=== PATIENT | female | born 1965 | race Caucasian/White ===

== ENCOUNTER 2018-03-14 23:01 | Inpatient (IN) | payer OTHER ==
[~2018-03-14] VITALS: Ht 160 cm; Wt 160.0 kg
[2018-03-14] MEDS ORDERED: VASOTEC5 MG (23:23)
[2018-03-14] MEDS ORDERED: NORVASC5 MG (23:24)
== END 2018-03-17 12:06 | disposition home or self-care (01) | DRG 69 ==
LOC: ER 23:01 → MEDJ 03-15 12:06
PROC: B345ZZZ Ultrasonography of Bilateral Common Carotid Arteries (ICD-10-PCS; principal; 2018-03-15)
PROC: B348ZZZ Ultrasonography of Bilateral Internal Carotid Arteries (ICD-10-PCS; 2018-03-15)
PROC: B246ZZZ Ultrasonography of Right and Left Heart (ICD-10-PCS; 2018-03-15)
PROC: B030ZZZ Magnetic Resonance Imaging (MRI) of Brain (ICD-10-PCS; 2018-03-15)
DX: G45.8 Other transient cerebral ischemic attacks and related syndromes (principal)
CPT/HCPCS: 70551

== ENCOUNTER 2018-09-16 09:51 | Outpatient (CLI) | payer OTHER ==
[~2018-09-16 09:51] MED LIST: NORVASC5 MG; VASOTEC5 MG
== END 2018-09-16 10:05 | disposition home or self-care (01) ==
LOC: RAD 09:51
DX: M54.5 Low back pain (principal); M62.830 Muscle spasm of back

== ENCOUNTER 2018-09-24 10:29 | Outpatient (CLI) | payer OTHER | END 2018-09-24 10:31 | disposition home or self-care (01) | LOC: SONOGRAMA 10:29 | DX: E78.49 Other hyperlipidemia (principal); R31.29 Other microscopic hematuria ==

== ENCOUNTER 2018-10-16 08:39 | Outpatient (CLI) | payer OTHER | END 2018-10-16 08:49 | disposition home or self-care (01) | LOC: TOM 08:39 | DX: R31.29 Other microscopic hematuria (principal) ==

== ENCOUNTER → 2021-10-10 06:52 | Outpatient (CLI) | payer OTHER | END | disposition home or self-care (01) | LOC: LAB 06:52 | PROVIDERS: ATTEND General Practice | DX: R51.9 Headache, unspecified (principal); R10.9 Unspecified abdominal pain; K21.9 Gastro-esophageal reflux disease without esophagitis; Z12.11 Encounter for screening for malignant neoplasm of colon; Z11.3 Encounter for screening for infections with a predominantly sexual mode of transmission; Z13.228 Encounter for screening for other metabolic disorders; Z13.220 Encounter for screening for lipoid disorders; Z11.4 Encounter for screening for human immunodeficiency virus [HIV]; Z13.29 Encounter for screening for other suspected endocrine disorder; Z13.0 Encounter for screening for diseases of the blood and blood-forming organs and certain disorders involving the immune mechanism; Z13.1 Encounter for screening for diabetes mellitus; I10 Essential (primary) hypertension; E78.2 Mixed hyperlipidemia; Z11.59 Encounter for screening for other viral diseases; Z12.31 Encounter for screening mammogram for malignant neoplasm of breast; E03.9 Hypothyroidism, unspecified; E55.9 Vitamin D deficiency, unspecified; R80.9 Proteinuria, unspecified; E11.9 Type 2 diabetes mellitus without complications ==

== ENCOUNTER 2021-10-17 07:17 | Outpatient (CLI) | payer OTHER | END 2021-10-17 07:46 | disposition home or self-care (01) | LOC: RAD 07:17 | PROVIDERS: ATTEND General Practice | DX: R10.9 Unspecified abdominal pain (principal); Z12.31 Encounter for screening mammogram for malignant neoplasm of breast; N60.01 Solitary cyst of right breast; I10 Essential (primary) hypertension ==

== ENCOUNTER 2021-10-29 06:48 | Outpatient (CLI) | payer OTHER | END 2021-10-29 13:42 | disposition home or self-care (01) | LOC: LAB 06:48 | DX: B00.9 Herpesviral infection, unspecified (principal); E78.5 Hyperlipidemia, unspecified; Z12.11 Encounter for screening for malignant neoplasm of colon ==

== ENCOUNTER 2022-01-28 06:50 | Outpatient (CLI) | payer OTHER | END 2022-01-28 06:56 | disposition home or self-care (01) | LOC: LAB 06:50 | DX: M25.569 Pain in unspecified knee (principal); M25.469 Effusion, unspecified knee ==

== ENCOUNTER 2022-01-30 13:00 | Outpatient (CLI) | payer OTHER | END 2022-01-30 13:12 | disposition home or self-care (01) | LOC: RAD 13:00 | PROVIDERS: ATTEND Orthopaedic Surgery | DX: M25.561 Pain in right knee (principal); M25.562 Pain in left knee ==

== ENCOUNTER 2022-05-28 09:35 | Outpatient (CLI) | payer OTHER | END 2022-05-28 09:45 | disposition home or self-care (01) | LOC: RAD 09:35 | PROVIDERS: ATTEND Specialist | DX: M54.9 Dorsalgia, unspecified (principal); M62.830 Muscle spasm of back ==

== ENCOUNTER 2023-03-11 08:45 | Outpatient (CLI) | payer OTHER ==
[~2023-03-11 08:45] MED LIST changes: +METHOCARBAMOL500 MG PO
== END 2023-03-11 08:47 | disposition home or self-care (01) ==
LOC: LAB 08:45
DX: R19.7 Diarrhea, unspecified (principal); R10.9 Unspecified abdominal pain; M54.50 Low back pain, unspecified

== ENCOUNTER 2023-03-11 09:46 | Outpatient (CLI) | payer OTHER | END 2023-03-11 09:49 | disposition home or self-care (01) | LOC: RAD 09:46 | PROVIDERS: ATTEND General Practice | DX: R19.7 Diarrhea, unspecified (principal); M54.50 Low back pain, unspecified ==

== ENCOUNTER 2023-07-17 08:08 | Outpatient (CLI) | payer OTHER | END 2023-07-17 08:36 | disposition home or self-care (01) | LOC: MAMO-SONO 08:08 | PROVIDERS: ATTEND Specialist | DX: Z12.31 Encounter for screening mammogram for malignant neoplasm of breast (principal); R51.9 Headache, unspecified; Z13.1 Encounter for screening for diabetes mellitus; I10 Essential (primary) hypertension; E55.9 Vitamin D deficiency, unspecified ==

== ENCOUNTER 2023-08-07 10:05 | Outpatient (CLI) | payer OTHER | END 2023-08-07 10:18 | disposition home or self-care (01) | LOC: SONOGRAMA 10:05 | PROVIDERS: ATTEND Specialist | DX: R31.1 Benign essential microscopic hematuria (principal); E78.5 Hyperlipidemia, unspecified ==

== ENCOUNTER 2023-11-13 14:56 | Outpatient (CLI) | payer OTHER ==
[2023-11-13 16:10] LABS: CREATININE SERUM 0.88 mg/dL (0.55-1.02)
== END 2023-11-13 15:00 | disposition home or self-care (01) ==
LOC: LAB 14:56
PROVIDERS: ATTEND Specialist
DX: R31.21 Asymptomatic microscopic hematuria (principal)

== ENCOUNTER 2023-11-18 07:55 | Outpatient (CLI) | payer OTHER | END 2023-11-18 08:32 | disposition home or self-care (01) | LOC: TOM 07:55 | PROVIDERS: ATTEND Urology | DX: R31.21 Asymptomatic microscopic hematuria (principal) ==

== ENCOUNTER 2024-07-05 09:13 | Outpatient (CLI) | payer OTHER | END 2024-07-05 09:35 | disposition home or self-care (01) | LOC: MRI 09:13 | PROVIDERS: ATTEND Specialist | DX: M25.561 Pain in right knee (principal) | CPT/HCPCS: 73718 ==